=== PATIENT | female | born 1980 | race Caucasian/White ===

== ENCOUNTER 2017-09-04 06:50 | Observation (INO) | payer OTHER ==
[2017-09-04] MEDS ORDERED: LORazepam TAB(*) 1 MG ONE (07:29)
[2017-09-04] MEDS ORDERED: Scopolamine 1.5 mg* PATCH ONE (07:30)
[2017-09-04] MEDS ORDERED: Ondansetron INJ* 2 MG/ML VIAL ONE (07:30)
[2017-09-04] MEDS ORDERED: Scopolamine 1.5 mg* PATCH TRANSDERM SCH (08:00)
[2017-09-04] MEDS ORDERED: Clindamycin 900 MG IVPREMIX(* 900 MG/50 ML SDV IV ONE (08:00)
[2017-09-04 08:05] LABS: BUN/Creatinine Ratio 18.3 (8-20); Calcium 9.6 mg/dL (8.6-10.3); EGFR African American 117.9 (>60); EGFR Non-African American 91.6 (>60); Potassium 3.8 mmol/L (3.5-5.0)
[2017-09-04] MEDS: Ibuprofen TAB* 800 MG PO ONE ×2 (08:09→08:15)
[2017-09-04] MEDS ORDERED: Heparin 2 UNITS/ML IVPREMIX* 2,000 ML IV ONE (08:13)
[2017-09-04] MEDS ORDERED: Iohexol 350 (CONTRAST) 200 ML MDV IV ONE (08:14)
[2017-09-04] MEDS ORDERED: Lidocaine 1% INJ* 10 MG/ML 30 ML SDV ONE (08:14)
[2017-09-04] MEDS ORDERED: Midazolam* 1 MG/ML 10 ML VIAL (10 MG) ONE (08:17)
[2017-09-04] MEDS ORDERED: fentaNYL* 50 MCG/ML 5 ML VIAL (250 MCG VIAL) ONE (08:17)
[2017-09-04] MEDS ORDERED: Ketorolac INJ* 30 MG/ML 1 ML VIAL ONE (08:18)
[2017-09-04] MEDS ORDERED: nitroGLYCERIN DRIP* 25,000 MCG/250 ML BTL ONE (08:18)
[2017-09-04] MEDS ORDERED: Naloxone* 0.4 MG/ML 1 ML VIAL ONE (08:18)
[2017-09-04] MEDS ORDERED: Flumazenil* 0.1 MG/ML 5 ML MDV ONE (08:18)
[2017-09-04] MEDS ORDERED: NS 0.9% 1000 ML* 1,000 ML IVPB SCH (08:42)
[2017-09-04] MEDS ORDERED: HYDROmorphone PCA* 20 MG/20 ML PCA.SYRING PCA SCH (09:00)
[2017-09-04] MEDS ORDERED: Naproxen TAB* 250 MG PO ONE (09:00)
[2017-09-04] MEDS ORDERED: HYDROmorphone INJ* 1 MG/ML CARPUJECT SYRINGE ONE (10:32)
[2017-09-04] MEDS ORDERED: LORazepam INJ* 2 MG/ML 1 ML VIAL ONE (10:46)
[2017-09-04] MEDS ORDERED: PROCHLORPERAZINE INJ 5 MG/ML 2 ML VIAL ONE (11:52)
--- NOTE | 2017-09-04 12:55 | RAD ---
CPT II Codes: 6045F Procedure(s) performed: * Pelvic arteriogram including the lower bilateral iliac arteries including the proximal portions of the superficial femoral arteries and femoral profundi. * Catheter arteriography of the bilateral uterine arteries. * Catheter embolization of the bilateral uterine arteries. Date of service: September 04, 2017 Indication for procedure: Long-standing history of pain and heavy menstrual bleeding in the presence of uterine fibroids. Comparison: Pelvic ultrasound May 13, 2017 Contrast: 75 mL Visipaque 320 Fluoroscopy Time: 32.6 minutes Vessels Accessed: Percutaneous access was obtained with ultrasound guidance in the right common femoral artery in the retrograde direction towards the heart. Catheter arteriography, with the catheter tip located within the lumen of the following arteries, was performed at the left external iliac artery left common femoral artery, left internal iliac artery, right common iliac artery, right internal iliac artery and bilateral uterine arteries. Anesthesia: Conscious sedation with IV Fentanyl and Versed as well as local 1% lidocaine injected locally at the arteriotomy site. Conscious sedation time: Timeout: 0907 hours Case end: 1103 hours Total conscious sedation time: 1 hour and 56 minutes Additional medications: * 500 mcg IA nitroglycerin injected intermittently throughout the course of the procedure to alleviate arterial spasm. * Intra-arterial Toradol, 15 mg injected into each uterine artery, for a total of 30 mg intra-arterial.. * Intravenous Toradol, 15 mg. * Transdermal scopolamine patch 1.5 mg applied to the mastoid process prior to the procedure beginning. * A total of 4 mg Zofran was administered intravenously. * The patient received Ativan 1 mg and naproxen 250 mg p.o. prior to the procedure. * Clindamycin 900 mg. PROCEDURE NOTE AND INTRAPROCEDURAL IMAGING FINDINGS: Immediately prior to the procedure the patient signed consent after thoroughly discussing all risks and benefits. The patient was positioned on the fluoroscopy table in the supine position and the bilateral groins were shaved, prepped and draped in standard sterile fashion. Using fluoroscopic imaging the location of the right common femoral head was marked externally with a skin marker on the patient's groin. Utilizing sonographic guidance and palpation the right common femoral artery was cannulated overlying the right femoral head with an 21-gauge needle. An ultrasound image was saved. A microwire was slowly and smoothly advanced to the aortic bifurcation under fluoroscopic imaging. No buckling of the wire was visualized to indicate dissection. Over the wire a 5-Argentine catheter was advanced into the artery, the inner stiffener removed and the microwire was replaced with a 0.035" J-tip wire which was advanced into the aorta. Finally the 5 Argentine catheter was exchanged for a 5 Argentine sidearm sheath. Utilizing a J tip wire and 5-Argentine Contra 2 flush catheter the left common iliac artery was accessed. Over the wire the Contra 2 was exchanged for a 5 Argentine angled tip catheter and this was used to access the left external iliac artery confirmed with contrast arteriography. The catheter tip was guided to the origin of the left internal iliac artery. With the tip of the catheter in the proximal most portion of the left internal iliac artery, angiography was performed to detail the branches of the left internal iliac artery which had depicted the uterine artery providing blood flow to the patient's uterine fibroid. Arteriograms in multiple oblique projections were performed to best discern the branch point of the uterine artery. Once the uterine artery was identified, a Renegade High-flow microcatheter and microwire were advanced into the parent catheter and, in conjunction with contrast angiography, the uterine artery was identified and selected with the micro catheter. Prior to embolization, contrast injection into the horizontal portion of the uterine artery demonstrated no large, obvious collateral blood flow to the ovary or a definite cervicovaginal branch descending inferiorly. Intra-arterial nitroglycerin was injected intermittently to alleviate arterial spasm. Under fluoroscopic control approximately 1 vial of 500 um Embozenes and 2 vials of 500-700 micron Embospheres were slowly injected into the uterine artery to near complete stasis. The conclusion of the left uterine artery embolization 15 mg of Toradol was injected intra-arterially. The microcatheter was pulled back into the more proximal descending portion of the uterine artery and contrast angiography depicted near complete stasis of the uterine artery. The microcatheter was removed and replaced with an 0.035" guidewire. Over the guidewire a 5-Argentine Empress catheter was advanced over the iliac bifurcation and formed in the aorta. With the loop formed and the wire within the catheter, the system was slowly retracted gaining access to the ipsilateral right internal iliac artery. Contrast angiography with the tip of the 5-Argentine catheter in the right common iliac artery followed by the proximal most portion of the right internal iliac artery demarcated the right uterine artery and multiple oblique projections were obtained to best depict the origin of the uterine artery. Once the uterine artery was identified, a Renegade High-flow microcatheter and microwire were advanced into the parent catheter and, in conjunction with contrast angiography, the uterine artery was identified and selected with the micro catheter. Prior to embolization, contrast injection into the horizontal portion of the uterine artery demonstrated no large, obvious collateral blood flow to the ovary or a definite cervicovaginal branch descending inferiorly. Intra-arterial nitroglycerin was injected intermittently to alleviate arterial spasm. Under fluoroscopic control 1 vial of 500 um Embozenes, 1 vial of 500-700 micron Embospheres and 1 vial 700-900 um Embospheres were slowly injected into the uterine artery to near complete stasis. Towards the conclusion of the right uterine artery embolization 15 mg of Toradol was injected intra-arterially. The microcatheter was pulled back into the more proximal descending portion of the uterine artery and contrast angiography depicted near complete stasis of the uterine artery. The microcatheter and wire were removed and the 0.035" wire was readvanced to the tip of the catheter. The system was then advanced towards the aorta. The contralateral left common iliac artery was accessed and catheter and wire were removed under fluoroscopic control. The access sheath was removed and pressure was held at the common femoral arteriotomy for approximately 15 minutes. There were no signs of bleeding at the right groin access site and the site was dressed with sterile gauze and Tegaderm. The patient tolerated the procedure well and was transferred to the short stay recovery unit in stable condition for routine overnight observation and pain and nausea control. SUMMARY OF PROCEDURE, IMAGING FINDINGS AND INTERVENTIONS PERFORMED: 1. Diagnostic studies performed: * Arterial access was obtained at the right common femoral artery in the retrograde direction (i.e. towards the heart) with ultrasound guidance. A sonographic image was recorded. * Diagnostic catheter angiography (necessary to perform the appropriate interventions) was performed with the catheter tip in the left external iliac artery, left common femoral artery, left internal iliac artery, right common iliac artery, right internal iliac artery and bilateral uterine arteries.. * Catheter arteriography was performed of the bilateral iliac arterial system and specifically the bilateral uterine arteries. 2. Interpretation of diagnostic studies performed: * Right dominant there uterine arteries supplying the patient's fibroid uterus. No large branch arteries to either ovary were identified. 3. Surgical interventions performed: * Near stasis embolization of the bilateral uterine arteries utilizing 2 vials 500 um Embozenes, 3 vials 500-700um Embospheres and one vial 700-900 um Embospheres.. 4. Interpretation of interventions performed: * Final arteriography demonstrated near complete stasis of the bilateral uterine arteries.. PLAN: 1. The patient will be admitted to short stay surgical unit for routine overnight observation including pain and nausea control. 2. Outpatient clinical and imaging follow-up according to the Interventional Radiology protocol.
[2017-09-04] MEDS ORDERED: NS 0.9% 1000 ML* 1,000 ML IV SCH (13:00)
[2017-09-04] MEDS ORDERED: Ondansetron INJ* 2 MG/ML VIAL IV SCH (16:00)
[2017-09-04] MEDS: Ketorolac INJ* 15 MG/ML 1 ML VIAL IV PUSH SCH ×3 (16:07→22:23)
--- NOTE | 2017-09-04 18:23 | PN ---
Progress Note - Progress Note Date of Service: 09/04/17 SOAP: Patient was seen and examined at approximately 1300 hours and again at 1800 hours. Subjective: Pain controlled at 10. Denies nausea. Feels thirsty. No appetite. Objective: Selected Entries 09/04/17 16:50 Temperature 98.4 F Temperature Oral Source Pulse Rate 94 Respiratory 16 Rate Blood Pressure 120/61 (mmHg) Blood Pressure 75 Mean O2 Sat by Pulse 99 Oximetry Patient on Room No Air Sitting up in bed sipping tea NAD, AAO x 3 Abdomen is soft, minimally tender above symphysis pubis Right CF arteriotomy is soft, nontender Dressing is C/D/I 2+ pulses at right FLIGHT STEWARD, pop, dpa RLE neuromuscular grossly intact Assessment: 37 YOF status post Uterine Fibroid Embolization with pain and nausea currently well controlled after patient received 10 mg Compazine IV. Plan: 1. Change Zofran 4 mg IV to Compazine 10 mg IV Q 6 hours (seems to control her nausea better). 2. Otherwise standard post UFE care.
--- NOTE | 2017-09-04 19:32 | HP ---
CC: Dr. Gamaliel Motley; Dr. Kentrell Sky * HISTORY AND PHYSICAL: DATE OF ADMISSION: 09/04/17 PRIMARY CARE PROVIDER: Dr. Gamaliel Motley. ATTENDING PHYSICIAN: Dr. Rolo Kramer * (dictated by Demetra Rico NP). CHIEF COMPLAINT: Heavy periods due to uterine fibroids. HISTORY OF PRESENT ILLNESS: Ms. Dobson is a 37-year-old female with past medical history significant for multiple uterine fibroids, vitamin D deficiency , abnormal uterine bleeding, hemorrhoids, lateral cystocele, enlarged uterus, migraines, depression, anxiety, GERD, seasonal allergies, pelvic organ prolapse , who presents to the hospital for an elective uterine fibroid embolization with Dr. Kentrell Sky today. The patient states that prior to her arrival, she has been in her usual state of health. She denies any fever, chills, chest pain , shortness of breath, nausea, vomiting, diarrhea. While in the hospital, the patient underwent a uterine fibroid embolization with Dr. Kentrell Sky. The procedure went well. There were no complications. PAST MEDICAL HISTORY: 1. Uterine fibroids. 2. History of concussion. 3. Pelvic organ prolapse. 4. Vitamin D deficiency. 5. Abnormal uterine bleeding. 6. Hemorrhoids. 7. Lateral cystocele. 8. Enlarged uterus. 9. Migraines. 10. Anxiety and depression. 11. GERD. 12. Seasonal allergies. PAST SURGICAL HISTORY: 1. Status post appendectomy in 1990. 2. Status post breast reduction in 1996. HOME MEDICATIONS: Include: 1. Vitamin D3 2000 units oral daily. 2. Xanax 0.25 mg oral up to 3 times daily as needed for anxiety prior to dental work. 3. Vitamin B12 500 mcg oral daily. 4. Sertraline 10 mg oral daily. 5. Diphenhydramine 25 mg oral nightly as needed for sleep. 6. Vortioxetine 20 mg oral daily. 7. Zomig 2.5 mg oral twice daily as needed for headaches, may take up to 2 days weekly. ALLERGIES: No known drug allergies. FAMILY HISTORY: The patient's father has a history of an aortic aneurysm, COPD , macular degeneration. The patient's mother had a history of pancreatic cancer. SOCIAL HISTORY: The patient lives with her and children. She denies smoking or recreational drug use. She occasionally drinks alcohol. REVIEW OF SYSTEMS: I performed a 14-point review of systems. All the pertinent positives and negatives are mentioned in the history of present illness. The patient also reports that she had recently developed spontaneous milky nipple discharge which was evaluated and determined to be non-oncologic. The remaining review of systems is negative. PHYSICAL EXAMINATION GENERAL APPEARANCE: The patient is drowsy, pleasant, and appears to be in no acute distress. VITAL SIGNS: Temperature 97.9, heart rate 80, respiratory rate 16, O2 sat 97% on 2 L via nasal cannula, blood pressure 115/60. HEENT: Normocephalic, atraumatic. Pupils are equal and reactive to light. Extraocular movements are intact. RESPIRATORY: There is no accessory muscle use. The lungs are clear to auscultation bilaterally. CARDIOVASCULAR: Regular rate and rhythm. S1 and S2 present. There are no murmurs, rubs, or gallops are heard. ABDOMEN: Soft, nontender, nondistended. There are bowel sounds present x4. EXTREMITIES: There is no lower extremity edema. DP and PT pulses are 2+ and symmetric. MUSCULOSKELETAL: There is no clubbing or cyanosis noted. The patient exhibits good strength in all extremities. NEUROLOGICAL: The patient is alert and oriented. PSYCHOLOGICAL: The patient is calm and cooperative. SKIN: There are no rashes or abnormalities seen. LABORATORY DATA: Sodium 140, potassium 3.8, chloride 107, CO2 25, BUN 13, creatinine 0.71, glucose 94. IMPRESSION: Ms. Dobson is a 37-year-old female with a past medical history significant for uterine fibroids, abnormal uterine bleeding, anxiety, depression , migraines, seasonal allergies, gastroesophageal reflux disease, who presented to the hospital for an elective uterine fibroid embolization with Dr. Kentrell Sky today. The patient will be admitted as an observation. ASSESSMENT AND PLAN: 1. Uterine fibroids with abnormal uterine bleeding. The patient is status post an uterine fibroid embolization. She will remain on bedrest until 3 p.m. today. She will have vital signs per Dr. Sky. She will have her urinary catheter removed at 5 p.m. She is to remain in bed flat with her legs straight until 3 p.m. The patient will have pain medication consisting of Dilaudid [employer] and Toradol every 6 hours in addition to Zofran every 6 hours. We will give her some gentle hydration. She will have a scopolamine patch. 2. Anxiety and depression. The patient will be continued on her home Trintellix. 3. Fluids, electrolytes, and nutrition. The patient will be on a clear liquid diet as tolerated. 4. DVT prophylaxis. The patient is at a low risk. Once she is able to ambulate, she will ambulate. Until then, she will have SCDs. 5. Code status. Full code. 6. Disposition. Observation. TIME SPENT: Time for this admission was approximately 60 minutes, greater than half of that was spent with the patient discussing medications, past medical history, and the events leading to her arrival today and performing a physical examination. The case has been reviewed with the attending, Dr. Kramer, who agrees with the plan of care. Reviewed by ROSALVA DIAZ 09/10/17 1913 [id number]/[facility] #: [id number] MTDLela
[2017-09-04] MEDS: PROCHLORPERAZINE INJ 5 MG/ML 2 ML VIAL IV SCH (22:07)
[2017-09-05] MEDS: PROCHLORPERAZINE INJ 5 MG/ML 2 ML VIAL IV SCH (04:09)
[2017-09-05] MEDS: Ketorolac INJ* 15 MG/ML 1 ML VIAL IV PUSH SCH (04:09)
[2017-09-05 07:57] VITALS: BP 129/67
[2017-09-05] MEDS ORDERED: Cetirizine* 10 MG TAB PO SCH (09:00)
[2017-09-05] MEDS ORDERED: Cyanocobalamin TAB* 500 MCG PO SCH (09:00)
[2017-09-05] MEDS ORDERED: PTO: Vortioxetine (NF) 20 MG TAB (FORMERLY Brintellix) PO SCH (09:00)
[2017-09-05] MEDS ORDERED: HYDROcodone/ACETAMIN 5-325 MG* 1 TAB PO PRN ×2 (09:32→09:44)
[2017-09-05] MEDS ORDERED: Prochlorperazine TAB* 10 MG PO PRN (09:45)
--- NOTE | 2017-09-05 09:54 | PN ---
Progress Note - Progress Note Date of Service: 09/05/17 SOAP: Spoke to Shanae Madsen RN over the telephone and then spoke to the patient over the telephone Subjective: Pain controlled at 3/10, "like a bad menstrual cramp". No nausea. Patient has eaten breakfast and is ambulating independently. Wants to go home. Denies vaginal drainage/bleeding. No pain at right CF arteriotomy site. Objective: Selected Entries 09/05/17 09/05/17 07:35 08:00 Temperature 97.8 F Temperature Oral Source Pulse Rate 73 Respiratory 20 Rate Blood Pressure 129/67 (mmHg) Blood Pressure 81 Mean O2 Sat by Pulse 98 Oximetry Patient on Room Yes Air Assessment: 37 YOF POD #1 s/p Uterine Artery Embolization with expected pain and nausea adequately controlled. Plan: 1. Transition IV to PO medications as ordered. 2. Outpatient medications will be as follows: * Toradol 10 mg PO every 8 hours x 3 days. 1 refill. Dispense # 15 (fifteen) * Increase to 10 mg every 6 hours if pain remains severe. * AFTER 3 days of Toradol: OTC Naprosyn 220 mg PO every 12 hours x 3 days. * Increase to 220 mg PO every 8 hours if pain remains severe. * Ringgold 5/325 PO, take 1 or 2 tablets every 6 hours as needed for pain x 5 days. 0 refill. Dispense # 30 (thirty) * Scopolamine 1.5 mg transdermal patch: On 09/07/17 remove current patch and replace with new patch then wear x 3 days. Dispense #2 (two) patches. * Compazine 10 mg PO every 8 hours x 5 days. 1 refill. Dispense # 30 (thirty) * If nausea persists increase dosage to 10 mg PO every 6 hours x 5 days. 3. Recommend laxative tea (for example, Smooth Move): drink one cup daily x 7 days. 4. Standard Interventional Radiology outpatient follow up will include RN clinic telephone calls 09/06/17 and 09/11/17; clinic follow up 6 weeks and 6 months post UFE.
[2017-09-05] MEDS ORDERED: Ketorolac TAB * 10 MG TAB PO SCH (10:00)
[2017-09-05] MEDS ORDERED: Prochlorperazine TAB* 10 MG PO SCH (10:00)
--- NOTE | 2017-09-05 10:48 | PN ---
Subjective Date of Service: 09/05/17 Interval History: Ms. Dobson is doing very well this morning and is eager for discharge to home. Objective Active Medications: Hydrocodone Bitart/Acetaminophen (Walker 5-325 Tab*) 2 tab PO Q6H PRN Hydrocodone Bitart/Acetaminophen (Walker 5-325 Tab*) 1 tab PO Q6H PRN Cetirizine HCl (Zyrtec*) 10 mg PO DAILY MAHAMED Cyanocobalamin (Vitamin B12 Tab*) 500 mcg PO DAILY MAHAMED Sodium Chloride (Ns 0.9% 1000 Ml*) 1,000 mls @ 125 mls/hr IV PER RATE MAHAMED Ketorolac Tromethamine (Toradol Tab *) 10 mg PO Q6H MAHAMED Prochlorperazine (Compazine Tab*) 10 mg PO Q8HR MAHAMED Prochlorperazine (Compazine Tab*) 10 mg PO Q6H PRN Scopolamine (Transderm-Scop 1.5 Mg Patch*) 1 patch TRANSDERM Q72H MAHAMED Vortioxetine (Trintellix (Nf)) 20 mg PO DAILY [facility] Vital Signs: Temp Pulse Resp BP Pulse Ox 97.8 F 73 18 129/67 98 09/05/17 07:35 09/05/17 07:35 09/05/17 10:43 09/05/17 07:35 09/05/17 08:00 Oxygen Devices in Use Now: None Appearance: Female sitting up in bed in NAD Eyes: No Scleral Icterus Ears/Nose/Mouth/Throat: Mucous Membranes Moist Neck: Trachea Midline Respiratory: Symmetrical Chest Expansion and Respiratory Effort, Clear to Auscultation Cardiovascular: NL Sounds; No Murmurs; No JVD, No Edema Abdominal: NL Sounds; No Tenderness; No Distention Lymphatic: No Cervical Adenopathy Extremities: No Edema Skin: No Rash or Ulcers Neurological: Alert and Oriented x 3, NL Muscle Strength and Tone Nutrition: Taking PO's Result Diagrams: 09/04/17 07:20 Assess/Plan/Problems-Billing Assessment: Ms. Dobson is a 37 yo F with a PMH of depression, pelvic organ prolapse and uterine fibroids who was admitted on 09/04/17 for uterine fibroid embolization. - Patient Problems (1) Leiomyoma Comment: - S/p embolization. - Nausea and pain well controlled on current regimen. - Plan for discharge to home with close follow up with Dr. Sky. (2) Depression Comment: - Continue trintellix. Status and Disposition: OBV. Discharge to home.
--- NOTE | 2017-09-05 20:29 | DS ---
CC: Dr. Motley * DISCHARGE SUMMARY: DATE OF ADMISSION: 09/04/17 DATE OF DISCHARGE: 09/05/17 PRIMARY CARE PROVIDER: Dr. Motley. ATTENDING PHYSICIAN: Dr. Pauly Caldera * (dictation provided by Dory Allen NP ). PRIMARY DIAGNOSIS: Status post uterine fibroid embolization. SECONDARY DIAGNOSES: 1. History of uterine leiomyoma. 2. History of concussion. 3. Pelvic organ prolapse with lateral cystocele. 4. Vitamin D deficiency. 5. Abnormal uterine bleeding. 6. Hemorrhoids. 7. Migraines. 8. Anxiety and depression. 9. Gastroesophageal reflux disease. 10. Seasonal allergies. PAST SURGICAL HISTORY: 1. Status post appendectomy in 1990 and status post breast reduction in 1996. MEDICATIONS AT THE TIME OF DISCHARGE: 1. Cholecalciferol 2000 units p.o. daily. 2. Trintellix 20 mg p.o. daily. 3. Cyanocobalamin 500 mcg p.o. daily. 4. Alprazolam as instructed p.r.n. 5. Benadryl 25 mg p.o. at bedtime. 6. Cetirizine 10 mg p.o. daily. 7. Zomig 2.5 mg as directed. 8. Scopolamine patch 1 patch q.72 hours for nausea. 9. Compazine 10 mg p.o. q.6 hours p.r.n. nausea. 10. Ketorolac 10 mg p.o. q.8 hours x3 days. 11. Hydrocodone/acetaminophen 5/325 mg 1 to 2 tabs p.o. q.6 hours p.r.n. pain. HOSPITAL COURSE: Ms. Dobson is a 37-year-old female with past medical history of uterine leiomyomas and abnormal uterine bleeding, who presented to the hospital on 09/04/17 for planned uterine fibroid embolization with Dr. Sky. I refer you to his documentation and the history and physical from Demetra Escalona NP, for complete details. In brief, Ms. Dobson has done very well since her procedure on 09/04/17. She is up ambulating in the room independently. She has no significant pain or nausea and is eager for discharge to home. Plans are for her to be discharged today to follow up closely with Dr. Sky per routine. DISPOSITION: Home. DIET: Regular. ACTIVITY: As instructed in the detailed discharge instructions per Dr. Sky which have been provided to the patient. DISCHARGE FOLLOWUP: Please follow up with Dr. Sky as detailed in the discharge plan. The patient will be contacted by Dr. Sky's clinic in the next 2 days and then 1 week after the procedure and then she will follow up with interventional radiology clinic in 6 weeks and then in 6 months after the uterine fibroid embolization. TIME SPENT: Approximately 45 minutes was spent in discharge of this patient, more than half of that time was spent with the patient at the bedside reviewing the events leading up this hospitalization, during the hospitalization, performing the physical exam, and reviewing my plan of care. DORY ALLEN NP [id number]/[facility] #: [id number] STACY
== END 2017-09-05 12:20 | disposition home or self-care (01) ==
LOC: CHICATH 06:50 → SSU 12:56
PROVIDERS: ADMIT Internal Medicine; ATTEND Internal Medicine
DX: D25.9 Leiomyoma of uterus, unspecified (principal); N93.8 Other specified abnormal uterine and vaginal bleeding; E55.9 Vitamin D deficiency, unspecified; K64.9 Unspecified hemorrhoids; N81.12 Cystocele, lateral; F41.8 Other specified anxiety disorders; G43.909 Migraine, unspecified, not intractable, without status migrainosus; K21.9 Gastro-esophageal reflux disease without esophagitis; N81.89 Other female genital prolapse; J30.9 Allergic rhinitis, unspecified; Z79.899 Other long term (current) drug therapy; R10.2 Pelvic and perineal pain; N94.9 Unspecified condition associated with female genital organs and menstrual cycle
CPT/HCPCS: 36415; 37243; 76937; 80048; 84702; 96374; 96375; 99156; 99157; A9270-GY; C1725; C1769; C1884; C1887; C1894; G0378; J0780; J1170; J1644; J1885; J2060; J2250; J2310; J2405; J3010; Q0164